=== PATIENT | male | born 1980 | race Caucasian/White ===

== ENCOUNTER 2017-06-04 09:08 | Day surgery (SDC) | payer MEDICARE, MEDICAID ==
[~2017-06-04] VITALS: Ht 172.7 cm; Wt 94.3 kg
[2017-06-04] MEDS ORDERED: LACTATED RINGERS 1,000 ML IV SCH (09:43)
[2017-06-04] MEDS ORDERED: TRAM50TA2 PO (09:50)
[2017-06-04] MEDS ORDERED: TAMS-11 PO (09:50)
[2017-06-04 09:55] VITALS: BP 145/88
[2017-06-04 10:10] LABS: PATH.CAST-FLAG NOT PRESENT; SPERM-FLAG NOT PRESENT; SRC-FLAG NOT PRESENT; XTAL-FLAG NOT PRESENT; YLC-FLAG NOT PRESENT
[2017-06-04] MEDS ORDERED: FENTANYL PF 100 MCG/2ML ONE ×3 (12:04→12:45)
[2017-06-04] MEDS ORDERED: MIDAZOLAM 1 MG/ML, 2ML ONE (12:04)
[2017-06-04] MEDS ORDERED: CIPROFLOXACIN/PMX 400MG/200ML 200 ML ONE (12:07)
[2017-06-04] MEDS ORDERED: ONDANSETRON 2MG/ML, 2ML ONE (12:13)
[2017-06-04] MEDS ORDERED: DEXAMETHASONE 4 MG/ML, 1ML ONE (12:13)
[2017-06-04] MEDS ORDERED: PROPOFOL 10 MG/ML, 20ML ONE (12:13)
[2017-06-04] MEDS ORDERED: LABETALOL 5MG/ML, 20ML IV PRN (12:30)
[2017-06-04] MEDS ORDERED: FENTANYL PF 100 MCG/2ML IV PRN (12:30)
[2017-06-04] MEDS ORDERED: ALBUTEROL SULFATE 2.5 MG/3 ML NPPB PRN (12:30)
[2017-06-04] MEDS ORDERED: ONDANSETRON 2MG/ML, 2ML IVPush PRN (12:30)
[2017-06-04] MEDS ORDERED: hydrALAzine 20 MG/ML, 1ML IV PRN (12:30)
[2017-06-04] MEDS ORDERED: MIDAZOLAM 1 MG/ML, 2ML IV PRN (12:30)
[2017-06-04] MEDS ORDERED: OXYcodone 5 MG/5 ML ORAL.SOL UDC PO PRN (12:30)
[2017-06-04] MEDS ORDERED: HYDROmorphone 1 MG/ML, 1ML IV PRN (12:30)
[2017-06-04] MEDS ORDERED: MEPERIDINE/PF 25MG/0.5ML IVPush PRN (12:30)
[2017-06-04] MEDS ORDERED: PROMETHAZINE 25 MG/ML, 1ML IV PRN (12:30)
[2017-06-04] MEDS ORDERED: OXYcodone 5 MG/5 ML ORAL.SOL UDC ONE (13:45)
== END 2017-06-04 16:05 | disposition home or self-care (01) ==
LOC: OUT 09:08
PROVIDERS: ATTEND Urology
DX: N20.2 Calculus of kidney with calculus of ureter (principal)
CPT/HCPCS: 52353; 74000; 76000; 81003; J0744; J1100; J2250; J2405; J2704; J3010; J7120; C1758; C1769